=== PATIENT | female | born 1950 | race African-American/Black ===

== ENCOUNTER 2016-09-12 20:34 | Emergency (ER) | payer MEDICARE, OTHER ==
[~2016-09-12] VITALS: Ht 154.9 cm; Wt 76.2 kg
[~2016-09-12 20:34] MED LIST: ASPI81TA9 PO; ATOR40TA59 PO; HYDR25TA9 PO; METO100T2 PO; NAPR220C4 PO; RAMI10CA PO; VENL75TA PO
[2016-09-12 21:08] VITALS: BP 137/72
[2016-09-12 21:46] LABS: BILIRUBIN,URINE NEGATIVE (NEG); GLUCOSE,URINE NEGATIVE (NEG); NITRITE,URINE NEGATIVE (NEG); PH,URINE 5.5; PROTEIN,URINE NEGATIVE (NEG-TRACE)
[2016-09-12 22:00] LABS: BACTERIA,URINE 0 /HPF (0-FEW); RBC,URINE 20-40 /HPF (0-2); WBC,URINE TNTC /HPF (0-4)
[2016-09-12 22:01] LABS: SQUAMOUS EPITHELIAL CELL,UR MOD /LPF; TRICHOMONAS,URINE PRESENT
[2016-09-12] MEDS ORDERED: CEPH-264 PO (22:21)
[2016-09-12] MEDS ORDERED: PHEN100T82 PO (22:21)
[2016-09-12] MEDS ORDERED: CEPHALEXIN 250 MG CAPSULE PO ONE (22:30)
--- NOTE | 2016-09-12 22:47 | ED.ADGEN ---
Past Medical History Past Medical History: Diverticulosis, High Cholesterol, Hypertension Additional Past Medical Histor: POLYCYSTIC FIBROSIS, SHINGLES Past Surgical History: Cancer Surgery, Other Additional Past Surgical Histo: RIGHT HEMICOLECTOMY, RIGHT & LEFT CATARACT SX Alcohol Use: None Drug Use: None Adult General Chief Complaint Chief Complaint: BLOOD IN URINE HPI HPI Patient is a 66 year old woman, history of hypertension, hypercholesterolemia, who presents to the emergency department with a 1 day, complaint of hematuria and urgency, frequency and mild sense of "irritation" with urination. Patient denies any history of similar complaints, denies any abdominal pain, any flank pain, any nausea or vomiting, any fevers or chills. She is concerned that she may have a urinary tract infection. Denies any discharge or drainage from the vagina, any injuries. Has not taken any medications prior to coming to the ED. [ ] Review of Systems Review of Systems Constitutional: Denies fever or chills. [] Eyes: Denies change in visual acuity. [] HENT: Denies nasal congestion or sore throat. [] Respiratory: Denies cough or shortness of breath. [] Cardiovascular: Denies chest pain or edema. [] GI: Denies abdominal pain, nausea, vomiting, bloody stools or diarrhea. [] : Dysuria, frequency, urgency and hematuria times one day. Musculoskeletal: Denies back pain or joint pain. [] Integument: Denies rash. [] Neurologic: Denies headache, focal weakness or sensory changes. [] Endocrine: Denies polyuria or polydipsia. [] Lymphatic: Denies swollen glands. [] Psychiatric: Denies depression or anxiety. [] Current Medications Current Medications Current Medications Medications (Trade) Dose Ordered Sig/Jana Start Time Stop Time Status Last Admin Dose Admin Cephalexin HCl (Keflex) 250 mg 1X ONCE 09/12/16 22:30 09/12/16 22:31 DC 09/12/16 22:33 250 MG Allergies Allergies Allergies Coded Allergies Type Severity Reaction Last Updated Verified codeine Allergy Intermediate 09/12/16 Yes tramadol Allergy Intermediate 09/12/16 Yes Physical Exam Physical Exam Constitutional: Well developed, well nourished, no acute distress, non-toxic appearance. [] HENT: Normocephalic, atraumatic, bilateral external ears normal, oropharynx moist, no oral exudates, nose normal. [] Eyes: PERRLA, EOMI, conjunctiva normal, no discharge. [] Neck: Normal range of motion, no tenderness, supple, no stridor. [] Cardiovascular:Heart rate regular rhythm, no murmur , S1, S2, rubs or gallops. [ ] Lungs & Thorax: Bilateral breath sounds clear to auscultation, no wheezing, rhonchi, rales. No chest wall tenderness or crepitus. [] Abdomen: Bowel sounds normal, soft, no tenderness, no rebound, rigidity, no guarding no masses, no pulsatile masses. [] Skin: Warm, dry, no erythema, no rash. [] Back: No tenderness, no CVA tenderness. [] Extremities: No tenderness, no cyanosis, no clubbing, ROM intact, no edema. [] Neurologic: Alert and oriented X 3, normal motor function, normal sensory function, no focal deficits noted. [] Psychologic: Affect normal, judgement normal, mood normal. [] Current Patient Data Vital Signs Vital Signs Date Time Temp Pulse Resp B/P Pulse Ox O2 Delivery O2 Flow Rate FiO2 09/12/16 21:08 99.9 88 16 99 Room Air 99.9 Lab Values Laboratory Tests Test 09/12/16 21:00 Urine Collection Type Unknown Urine Color Yellow Urine Clarity Clear Urine pH 5.5 Urine Specific [place] 1.020 Urine Protein Negativemg/dL (NEG-TRACE) Urine Glucose (UA) Negativemg/dL (NEG) Urine Ketones (Stick) Negativemg/dL (NEG) Urine Blood Large (NEG) Urine Nitrite Negative (NEG) Urine Bilirubin Negative (NEG) Urine Urobilinogen Dipstick 1.0mg/dL (0.2 mg/dL) Urine Leukocyte Esterase Large (NEG) Urine RBC 20-40/HPF (0-2) Urine WBC Tntc/HPF (0-4) Urine Squamous Epithelial Cells Mod/LPF Urine Bacteria 0/HPF (0-FEW) Urine Trichomonas Present EKG EKG Not indicated. [] Radiology/Procedures Radiology/Procedures [] Impressions: Not indicated. Course & Med Decision Making Course & Med Decision Making Pertinent Labs and Imaging studies reviewed. (See chart for details) Patient's examination and history are consistent with a copy acute cystitis with hematuria. Urinalysis is positive for too numerous to count WBCs and blood , no bacteria are noted. I did discuss these findings with patient, she is agreeable to plan to treat urinary tract infection, with Pyridium for discomfort , to follow-up with her primary care provider for test of cure in 5-7 days, and to return to the ED if any new or concerning symptoms develop as discussed at bedside and in the paperwork. Patient given first dose of Keflex in the ED without issue, discharged home in stable condition with plan as above Dragon Disclaimer Dragon Disclaimer This electronic medical record was generated, in whole or in part, using a voice recognition dictation system. Departure Impression: Primary Impression: Urinary tract infection Disposition: HOME, SELF-CARE Condition: IMPROVED Scripts Phenazopyridine Hcl (Pyridium)100 Mg [id number] Mg PO TID PRN PAIN #9 TAB Prov:MARITZA FIERRO DO 09/12/16 Cephalexin (Keflex)500 Mg Capsule1 Cap PO BID #10 CAP Prov:MARITZA FIERRO DO 09/12/16 Problem Qualifiers Primary Impression: Urinary tract infection Urinary tract infection type: acute cystitis Hematuria presence: with hematuria Qualified Code: N30.01 - Acute cystitis with hematuria MARITZA FIERRO DO Sep 12, 2016 22:47
== END 2016-09-12 22:33 | disposition home or self-care (01) ==
LOC: ER 20:34
DX: N30.01 Acute cystitis with hematuria (principal); I10 Essential (primary) hypertension; E78.00 Pure hypercholesterolemia, unspecified; E28.2 Polycystic ovarian syndrome; Z88.5 Allergy status to narcotic agent
CPT/HCPCS: 81001; 99283

== ENCOUNTER 2017-01-11 15:26 | Emergency (ER) | payer MEDICARE, OTHER ==
[~2017-01-11] VITALS: Ht 154.9 cm; Wt 78.5 kg
[~2017-01-11 15:26] MED LIST changes: +ASPI-612 PO; -ASPI81TA9 PO; +CEPH-264 PO; +Metoprolol Succinate PO; +PHEN100T82 PO
[2017-01-11 16:35] LABS: BASO % 1 % (0-3); EOS % 1 % (0-3); HEMATOCRIT 48.7 % (36.0-47.0); HEMOGLOBIN 16.3 g/dL (12.0-15.5); LYMPH # 1.6 x10^3/uL (1.0-4.8); LYMPH % 29 % (24-48); MEAN CORPUSCULAR HEMOGLOBIN 29 pg (25-35); MEAN CORPUSCULAR HGB CONC 34 g/dL (31-37); MEAN CORPUSCULAR VOLUME 87 fL (79-100); MONO % 11 % (0-9); NEUT % 59 % (31-73); PLATELET COUNT 176 x10^3/uL (140-400); RED BLOOD COUNT 5.64 x10^6/uL (3.50-5.40); RED CELL DISTRIBUTION WIDTH 13.5 % (11.5-14.5); WHITE BLOOD COUNT 5.5 x10^3/uL (4.0-11.0)
[2017-01-11 16:45] LABS: BILIRUBIN,URINE NEGATIVE (NEG); GLUCOSE,URINE NEGATIVE (NEG); NITRITE,URINE NEGATIVE (NEG); PH,URINE 7.5; PROTEIN,URINE NEGATIVE (NEG-TRACE)
--- NOTE | 2017-01-11 16:47 | EKG ---
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
[2017-01-11 16:57] LABS: BACTERIA,URINE FEW /HPF (0-FEW); RBC,URINE RARE /HPF (0-2); SQUAMOUS EPITHELIAL CELL,UR MOD /LPF; TRICHOMONAS,URINE PRESENT
--- NOTE | 2017-01-11 17:16 | PHYS DOC ---
Past Medical History Past Medical History: Cancer, Diverticulosis, High Cholesterol, Hypertension, Other Additional Past Medical Histor: POLYCYSTIC FIBROSIS, SHINGLES,COLON CA Past Surgical History: Cancer Surgery, Other Additional Past Surgical Histo: RIGHT HEMICOLECTOMY, RIGHT & LEFT CATARACT SX Alcohol Use: None Drug Use: None Adult General Chief Complaint Chief Complaint: DIZZY/LIGHT HEADED HPI HPI Patient is a 66 year old female who was driven to the ED by family members with the complaint of dizziness. Patient describes this as "my head is swimming ". Patient was actually admitted in late November for a couple of days for this same complaint. She was treated for a UTI on that admission. She states her symptoms never went away and has bothered her ever since then but his worse today. She lives alone. She denies fall. She does not have a headache. She states when she was discharged from the hospital they told her she needed to follow-up with ENT but she has not been able to do that yet. Patient is on no new medications. Before she was admitted in November she had been seen in the office and was told she was on "too many medications" she was told to stop taking hydrochlorothiazide and potassium. She has continued all of her other medications as prescribed. Patient denies pain anywhere, denies shortness of air, denies vomiting or diarrhea, denies UTI symptoms. PCP Dr.Moussa Wheatley metoprolol 100 mg daily, ramipril, atorvastatin, Vanlafexine Review of Systems Review of Systems Constitutional: Denies fever or chills [] Eyes: Denies change in visual acuity, redness, or eye pain [] HENT: Denies nasal congestion or sore throat [] Respiratory: Denies cough or shortness of breath [] Cardiovascular: Denies chest pain GI: Denies abdominal pain, nausea, vomiting, bloody stools or diarrhea [] : Denies dysuria or hematuria [] Musculoskeletal: Denies back pain or joint pain [] Integument: Denies rash or skin lesions [] Neurologic: Denies headache, focal weakness or sensory changes [] Endocrine: Denies polyuria or polydipsia [] Allergies Allergies Allergies Coded Allergies Type Severity Reaction Last Updated Verified codeine Allergy Intermediate 09/12/16 Yes tramadol Allergy Intermediate 09/12/16 Yes Physical Exam Physical Exam Constitutional: Well developed, well nourished, no acute distress, non-toxic appearance. [] HENT: Normocephalic, atraumatic, bilateral external ears normal, oropharynx moist, no oral exudates, nose normal. [] Eyes: PERRLA, EOMI, conjunctiva normal, no discharge. [] Neck: Normal range of motion, no tenderness, supple, no stridor. [] Cardiovascular:Heart rate regular rhythm, no murmur [] Lungs & Thorax: Bilateral breath sounds clear to auscultation [] Abdomen: Bowel sounds normal, soft, no tenderness, no masses, no pulsatile masses. [] Skin: Warm, dry, no erythema, no rash. [] Back: No tenderness, no CVA tenderness. [] Extremities: No tenderness, no cyanosis, no clubbing, ROM intact, no edema. [] Neurologic: Alert and oriented X 3, normal motor function, normal sensory function, no focal deficits noted. [] Psychologic: Affect normal, judgement normal, mood normal. [] Current Patient Data Vital Signs Vital Signs Date Time Temp Pulse Resp B/P (MAP) Pulse Ox O2 Delivery O2 Flow Rate FiO2 01/11/17 17:46 63 18 159/73 (101) 94 01/11/17 17:16 Room Air 01/11/17 15:58 98.5 98.5 Lab Values Laboratory Tests Test 01/11/17 15:35 01/11/17 16:00 01/11/17 17:00 Urine Collection Type Unknown Urine Color Yellow Urine Clarity Clear Urine pH 7.5 Urine Specific [place] 1.015 Urine Protein Negative mg/dL (NEG-TRACE) Urine Glucose (UA) Negative mg/dL (NEG) Urine Ketones (Stick) Negative mg/dL (NEG) Urine Blood Negative (NEG) Urine Nitrite Negative (NEG) Urine Bilirubin Negative (NEG) Urine Urobilinogen Dipstick 1.0 mg/dL (0.2 mg/dL) Urine Leukocyte Esterase Small (NEG) Urine RBC Rare /HPF (0-2) Urine WBC 1-4 /HPF (0-4) Urine Squamous Epithelial Cells Mod /LPF Urine Bacteria Few /HPF (0-FEW) Urine Mucus Slight /LPF Urine Trichomonas Present White Blood Count 5.5 x10^3/uL (4.0-11.0) Red Blood Count 5.64 x10^6/uL (3.50-5.40) H Hemoglobin 16.3 g/dL (12.0-15.5) H Hematocrit 48.7 % (36.0-47.0) H Mean Corpuscular Volume 87 fL (79-100) Mean Corpuscular Hemoglobin 29 pg (25-35) Mean Corpuscular Hemoglobin Concent 34 g/dL (31-37) Red Cell Distribution Width 13.5 % (11.5-14.5) Platelet Count 176 x10^3/uL (140-400) Neutrophils (%) (Auto) 59 % (31-73) Lymphocytes (%) (Auto) 29 % (24-48) Monocytes (%) (Auto) 11 % (0-9) H Eosinophils (%) (Auto) 1 % (0-3) Basophils (%) (Auto) 1 % (0-3) Neutrophils # (Auto) 3.3 x10^3uL (1.8-7.7) Lymphocytes # (Auto) 1.6 x10^3/uL (1.0-4.8) Monocytes # (Auto) 0.6 x10^3/uL (0.0-1.1) Eosinophils # (Auto) 0.0 x10^3/uL (0.0-0.7) Basophils # (Auto) 0.0 x10^3/uL (0.0-0.2) Sodium Level 144 mmol/L (136-145) Potassium Level 3.6 mmol/L (3.5-5.1) Chloride Level 106 mmol/L (98-107) Carbon Dioxide Level 35 mmol/L (21-32) H Anion Gap 3 (6-14) L Blood Urea Nitrogen 14 mg/dL (7-20) Creatinine 1.5 mg/dL (0.6-1.0) H Estimated GFR (Cockcroft-Gault) 41.9 BUN/Creatinine Ratio 9 (6-20) Glucose Level 109 mg/dL (70-99) H Calcium Level 9.5 mg/dL (8.5-10.1) Total Bilirubin 0.4 mg/dL (0.2-1.0) Aspartate Amino Transferase (AST) 26 U/L (15-37) Alanine Aminotransferase (ALT) 38 U/L (14-59) Alkaline Phosphatase 156 U/L (46-116) H Total Protein 7.7 g/dL (6.4-8.2) Albumin 3.4 g/dL (3.4-5.0) Albumin/Globulin Ratio 0.8 (1.0-1.7) L Laboratory Tests 01/11/17 16:00 Laboratory Tests 01/11/17 17:00 EKG EKG 12-lead EKG read by me. Sinus rhythm. Heart rate 62. There are no acute ST or T wave changes indicative of ischemia or infarction. No STEMI. 1054 [] Radiology/Procedures Radiology/Procedures [] Course & Med Decision Making Course & Med Decision Making Pertinent Labs and Imaging studies reviewed. (See chart for details) Labs obtained, no findings would explain dizziness. Her creatinine is a bit elevated but similar to what it has been in the past. I discussed with the patient admission versus outpatient follow-up. She is nontoxic, not acute, she does not meet any admission criteria. I'm not sure that any further evaluation in the hospital would benefit her. She was advised to follow up with ENT and I agree that that is probably the next best specialist for her to see. We discussed that and she is comfortable making ENT follow-up arrangements as an outpatient. We will try a decongestant for a few days as well. See instructions for plan. [] Dragon Disclaimer Dragon Disclaimer This electronic medical record was generated, in whole or in part, using a voice recognition dictation system. Departure Departure Impression: Primary Impression: Dizziness of unknown cause Disposition: HOME, SELF-CARE Condition: STABLE Referrals: LUBA YOUSSEF MD (PCP) Additional Instructions: As we discussed, dizziness can be caused by different problems. We did not find a serious cause of your dizziness today in the emergency department. I suggest follow up with ear, nose, throat specialist (ENT) as the next step in evaluating your dizziness. Call your doctor Friday to work on getting appointment. I recommend that you try taking a decongestant for a few days to see if this helps. This can be purchased [id number] in the cold dissection, a decongestant such as phenyl (. Take as directed. It will cause your blood pressure to be slightly elevated while you're taking it but that will not be dangerous and it is fine to do that. REEMA KINGSLEY MD Jan 11, 2017 17:16
[2017-01-11 17:22] LABS: CALCIUM 9.5 mg/dL (8.5-10.1); CREATININE 1.5 mg/dL (0.6-1.0); GFR 41.9; POTASSIUM 3.6 mmol/L (3.5-5.1)
[2017-01-11 17:27] LABS: ALBUMIN 3.4 g/dL (3.4-5.0); ALBUMIN/GLOBULIN RATIO 0.8 (1.0-1.7); TOTAL BILIRUBIN 0.4 mg/dL (0.2-1.0); TOTAL PROTEIN 7.7 g/dL (6.4-8.2)
[2017-01-11 17:46] VITALS: BP 159/73
== END 2017-01-11 18:27 | disposition home or self-care (01) ==
LOC: ER 15:26
DX: R42 Dizziness and giddiness (principal); R74.8 Abnormal levels of other serum enzymes; E78.00 Pure hypercholesterolemia, unspecified; I10 Essential (primary) hypertension; Z88.5 Allergy status to narcotic agent; Z98.41 Cataract extraction status, right eye
CPT/HCPCS: 36415; 80053; 81001; 85027; 87086; 93005; 99285-25

== ENCOUNTER 2019-08-21 18:04 | Emergency (ER) | payer MEDICARE, OTHER ==
[~2019-08-21] VITALS: Ht 152.4 cm; Wt 83.3 kg
[~2019-08-21 18:04] MED LIST changes: +HYDR-2145 PO; -HYDR25TA9 PO; -METO100T2 PO; +METO100T7 PO; -RAMI10CA PO; +RAMI10CA53 PO
[2019-08-21 19:24] LABS: BILIRUBIN,URINE NEGATIVE (NEG); CLARITY,URINE CLEAR; COLOR,URINE YELLOW; NITRITE,URINE NEGATIVE (NEG); PH,URINE 5.5; PROTEIN,URINE NEGATIVE (NEG-TRACE)
[2019-08-21 19:24] LABS: BASO # 0.1 x10^3/uL (0.0-0.2); BASO % 1 % (0-3); EOS % 1 % (0-3); HEMATOCRIT 44.7 % (36.0-47.0); HEMOGLOBIN 14.7 g/dL (12.0-15.5); LYMPH # 1.9 x10^3/uL (1.0-4.8); LYMPH % 30 % (24-48); MEAN CORPUSCULAR HEMOGLOBIN 29 pg (25-35); MEAN CORPUSCULAR HGB CONC 33 g/dL (31-37); MEAN CORPUSCULAR VOLUME 87 fL (79-100); MONO # 0.5 x10^3/uL (0.0-1.1); MONO % 8 % (0-9); NEUT # 3.7 x10^3/uL (1.8-7.7); NEUT % 60 % (31-73); PLATELET COUNT 199 x10^3/uL (140-400); RED BLOOD COUNT 5.15 x10^6/uL (3.50-5.40); RED CELL DISTRIBUTION WIDTH 13.3 % (11.5-14.5); WHITE BLOOD COUNT 6.2 x10^3/uL (4.0-11.0)
--- NOTE | 2019-08-21 19:24 | PHYS DOC ---
Past Medical History Past Medical History: Cancer, Diverticulosis, High Cholesterol, Hypertension, Other Additional Past Medical Histor: POLYCYSTIC FIBROSIS, SHINGLES,COLON CA Past Surgical History: Cancer Surgery, Other Additional Past Surgical Histo: RIGHT HEMICOLECTOMY, RIGHT & LEFT CATARACT SX Alcohol Use: None Drug Use: None Adult General Chief Complaint Chief Complaint: DIZZY/LIGHT HEADED HPI HPI Patient is a 69 year old female who presents with patient states for the last week she could just be sitting watching TV or laying in bed and suddenly get dizzy. She states that her blood pressure goes up and she becomes dizzy. She states she can either be just sitting there doing nothing or she could even rolling around in bed switching positions and she would fill it. She denies abdominal pain, nausea, vomiting, visual changes, headache, numbness or tingling, weakness, chest pain, shortness of air, fever, recent illness, palpitations. She denies any dizziness at this time. Review of Systems Review of Systems Neurologic: Intermittent dizziness. Denies headache, focal weakness or sensory changes [] All other systems were reviewed and found to be within normal limits, except as documented in this note. Current Medications Current Medications Current Medications Medications (Trade) Dose Ordered Sig/Jnaa Start Time Stop Time Status Last Admin Dose Admin Sodium Chloride 1,000 ml @ 1,000 mls/hr 1X ONCE 08/21/19 20:15 08/21/19 21:14 08/21/19 20:13 1,000 MLS/HR Allergies Allergies Allergies Coded Allergies Type Severity Reaction Last Updated Verified codeine Allergy Intermediate 09/12/16 Yes tramadol Allergy Intermediate 09/12/16 Yes Physical Exam Physical Exam Constitutional: Well developed, well nourished, no acute distress, non-toxic appearance. [] HENT: Normocephalic, atraumatic, bilateral external ears normal, oropharynx moist, no oral exudates, nose normal. [] Eyes: PERRLA, EOMI, conjunctiva normal, no discharge. [] Neck: Normal range of motion, no tenderness, supple, no stridor. [] Cardiovascular:Heart rate regular rhythm, no murmur [] Lungs & Thorax: Bilateral breath sounds clear to auscultation [] Abdomen: Bowel sounds normal, soft, no tenderness, no masses, no pulsatile masses. [] Skin: Warm, dry, no erythema, no rash. [] Back: No tenderness, no CVA tenderness. [] Extremities: No tenderness, no cyanosis, no clubbing, ROM intact, no edema. [] Neurologic: Alert and oriented X 3, normal motor function, normal sensory function, no focal deficits noted. [] Psychologic: Affect normal, judgement normal, mood normal. Normal Physical Exam[] Current Patient Data Vital Signs Vital Signs Date Time Temp Pulse Resp B/P (MAP) Pulse Ox O2 Delivery O2 Flow Rate FiO2 08/21/19 19:05 98.7 71 12 135/61 (85) 98 Room Air 98.7 Lab Values Laboratory Tests Test 08/21/19 18:43 08/21/19 19:18 Urine Collection Type Unknown Urine Color Yellow Urine Clarity Clear Urine pH 5.5 Urine Specific [place] 1.015 Urine Protein Negative mg/dL (NEG-TRACE) Urine Glucose (UA) Negative mg/dL (NEG) Urine Ketones (Stick) Negative mg/dL (NEG) Urine Blood Negative (NEG) Urine Nitrite Negative (NEG) Urine Bilirubin Negative (NEG) Urine Urobilinogen Dipstick 1.0 mg/dL (0.2 mg/dL) Urine Leukocyte Esterase Small (NEG) Urine RBC 0 /HPF (0-2) Urine WBC 5-10 /HPF (0-4) Urine Squamous Epithelial Cells Many /LPF Urine Bacteria Moderate /HPF (0-FEW) Urine Mucus Slight /LPF White Blood Count 6.2 x10^3/uL (4.0-11.0) Red Blood Count 5.15 x10^6/uL (3.50-5.40) Hemoglobin 14.7 g/dL (12.0-15.5) Hematocrit 44.7 % (36.0-47.0) Mean Corpuscular Volume 87 fL (79-100) Mean Corpuscular Hemoglobin 29 pg (25-35) Mean Corpuscular Hemoglobin Concent 33 g/dL (31-37) Red Cell Distribution Width 13.3 % (11.5-14.5) Platelet Count 199 x10^3/uL (140-400) Neutrophils (%) (Auto) 60 % (31-73) Lymphocytes (%) (Auto) 30 % (24-48) Monocytes (%) (Auto) 8 % (0-9) Eosinophils (%) (Auto) 1 % (0-3) Basophils (%) (Auto) 1 % (0-3) Neutrophils # (Auto) 3.7 x10^3/uL (1.8-7.7) Lymphocytes # (Auto) 1.9 x10^3/uL (1.0-4.8) Monocytes # (Auto) 0.5 x10^3/uL (0.0-1.1) Eosinophils # (Auto) 0.0 x10^3/uL (0.0-0.7) Basophils # (Auto) 0.1 x10^3/uL (0.0-0.2) Prothrombin Time 13.7 SEC (11.7-14.0) Prothrombin Time INR 1.1 (0.8-1.1) Sodium Level 144 mmol/L (136-145) Potassium Level 3.7 mmol/L (3.5-5.1) Chloride Level 106 mmol/L (98-107) Carbon Dioxide Level 29 mmol/L (21-32) Anion Gap 9 (6-14) Blood Urea Nitrogen 24 mg/dL (7-20) H Creatinine 1.5 mg/dL (0.6-1.0) H Estimated GFR (Cockcroft-Gault) 41.5 BUN/Creatinine Ratio 16 (6-20) Glucose Level 111 mg/dL (70-99) H Calcium Level 8.9 mg/dL (8.5-10.1) Total Bilirubin 0.5 mg/dL (0.2-1.0) Aspartate Amino Transferase (AST) 23 U/L (15-37) Alanine Aminotransferase (ALT) 24 U/L (14-59) Alkaline Phosphatase 136 U/L (46-116) H Total Protein 7.3 g/dL (6.4-8.2) Albumin 3.4 g/dL (3.4-5.0) Albumin/Globulin Ratio 0.9 (1.0-1.7) L Laboratory Tests 08/21/19 19:18 Laboratory Tests 08/21/19 19:18 EKG EKG Sinus Rhythm and no STEMI[] Interpretation Time: [address] Barnes Radiology/Procedures Radiology/Procedures [] Impressions: [facility] [address] [place], [place] [id number] IMAGING REPORT Signed PATIENT: BOB SALMON: [id number] : 1950 LOCATION: ER AGE: 69 SEX: F EXAM STATUS: REG ER ORD. PHYSICIAN: VIPIN SOLIS APRN REASON: dizziness PROCEDURE: PORTABLE CHEST 1V Exam: Chest one view INDICATION: Dizziness TECHNIQUE: Frontal view of the chest Comparisons: 12/21/2016 FINDINGS: The cardiomediastinal silhouette and pulmonary vessels are within normal limits. The lung and pleural spaces are clear. IMPRESSION: No acute cardiopulmonary process. Electronically signed by: Min Hernandez MD (08/21/2019 7:57 PM) [facility] DICTATED and SIGNED BY: MIN HERNANDEZ MD DATE: 08/21/191956 [facility] [address] [place] [address] IMAGING REPORT Signed PATIENT: BOB SALMON: [id number] : 1950 LOCATION: ER AGE: 69 SEX: F EXAM STATUS: REG ER ORD. PHYSICIAN: VIPIN SOLIS APRN REASON: dizziness and elevated blood pressure; no trauma PROCEDURE: CT HEAD WO CONTRAST CT HEAD WO CONTRAST History: Dizziness, elevated blood pressure Comparison: December 21, 2016 Technique: Noncontrast CT imaging was performed of the head. Exposure: One or more of the following individualized dose reduction techniques were utilized for this examination: 1. Automated exposure control 2. Adjustment of the mA and/or kV according to patient size 3. Use of iterative reconstruction technique. Findings: There again has been bifrontal and right parietal temporal craniotomy. There are again clips in the right frontal region. There is a similar degree of encephalomalacia/resection cavity with cortical involvement of the right frontal lobe. There is again prominence of bifrontal subarachnoid spaces, evidence of involutional change. No acute hyperdense intracranial hemorrhage is identified. Rich-white differentiation of the major vascular territories is maintained. There is atherosclerotic calcification of the carotid siphons bilaterally. Visualized paranasal sinuses and mastoid air cells are aerated. Impression: 1. No acute intracranial abnormality is identified. There is similar degree of encephalomalacia/resection cavity of the right frontal lobe with cortical involvement. Electronically signed by: Odalis Beckham MD (08/21/2019 7:45 PM) [facility] DICTATED and SIGNED BY: ODALIS BECKHAM MD DATE: 08/21/191944 Course & Med Decision Making Course & Med Decision Making No nystagmus. PERRLA. Alert and oriented. Ambulatory with a steady gait. Patient states she is eating and drinking appropriately. Lungs are clear to auscultation all lobes. Vital signs are within normal limits. She denies any new changes in her medications. No extremity edema. Speaks in full clear sentences. Skin pink warm and dry. Abdomen is soft and nontender. EKG shows sinus rhythm and no STEMI. NIH is negative. Kidney enzymes compared to 5 years ago (last we have on file) have jumped almost [address] head and chest xray show no acute findings. Orthostatics are normal. Patient is given fluids. She does have a slight UTI. Her symptoms are vertigo type symptoms. Patient is able to walk with a steady gait. Dragon Disclaimer Dragon Disclaimer This electronic medical record was generated, in whole or in part, using a voice recognition dictation system. Departure Departure Impression: Primary Impression: Urinary tract infection Additional Impression: Vertigo Disposition: 01 HOME, SELF-CARE Condition: STABLE Referrals: NON,STAFF (PCP) Patient Instructions: Urinary Tract Infection, Vertigo Additional Instructions: Treatment plenty of fluids. Take antibiotic as prescribed. Follow up with her primary care doctor as soon as possible. Go from laying to sitting slowly and from sitting to standing slowly. Scripts Cephalexin (KEFLEX) 500 Mg Capsule 1 CAP PO BID for 7 Days, #14 CAP 0 Refills Prov: VIPIN SOLIS APRN 08/21/19 Meclizine Hcl (MECLIZINE HCL) 25 Mg Tablet 1 TAB PO TID, #21 TAB Prov: VIPIN SOILS APRN 08/21/19 Problem Qualifiers Primary Impression: Urinary tract infection Urinary tract infection type: acute cystitis Hematuria presence: without hematuria Qualified Codes: N30.00 - Acute cystitis without hematuria VIPIN SOLIS APRN Aug 21, 2019 19:24
[2019-08-21 19:30] LABS: SQUAMOUS EPITHELIAL CELL,UR MANY /LPF
[2019-08-21 19:30] LABS: CALCIUM 8.9 mg/dL (8.5-10.1); CREATININE 1.5 mg/dL (0.6-1.0); GFR 41.5; POTASSIUM 3.7 mmol/L (3.5-5.1)
[2019-08-21 19:31] LABS: BACTERIA,URINE MODERATE /HPF (0-FEW); RBC,URINE 0 /HPF (0-2)
[2019-08-21 19:33] LABS: PROTHROMBIN TIME PATIENT 13.7 SEC (11.7-14.0)
[2019-08-21 19:38] LABS: ALBUMIN 3.4 g/dL (3.4-5.0); ALBUMIN/GLOBULIN RATIO 0.9 (1.0-1.7); TOTAL BILIRUBIN 0.5 mg/dL (0.2-1.0); TOTAL PROTEIN 7.3 g/dL (6.4-8.2)
--- NOTE | 2019-08-21 19:48 | RAD ---
CT HEAD WO CONTRAST History: Dizziness, elevated blood pressure Comparison: December 21, 2016 Technique: Noncontrast CT imaging was performed of the head. Exposure: One or more of the following individualized dose reduction techniques were utilized for this examination: 1. Automated exposure control 2. Adjustment of the mA and/or kV according to patient size 3. Use of iterative reconstruction technique. Findings: There again has been bifrontal and right parietal temporal craniotomy. There are again clips in the right frontal region. There is a similar degree of encephalomalacia/resection cavity with cortical involvement of the right frontal lobe. There is again prominence of bifrontal subarachnoid spaces, evidence of involutional change. No acute hyperdense intracranial hemorrhage is identified. Rich-white differentiation of the major vascular territories is maintained. There is atherosclerotic calcification of the carotid siphons bilaterally. Visualized paranasal sinuses and mastoid air cells are aerated. Impression: 1. No acute intracranial abnormality is identified. There is similar degree of encephalomalacia/resection cavity of the right frontal lobe with cortical involvement. Electronically signed by: Adria Davis MD (08/21/2019 7:45 PM) [facility]
--- NOTE | 2019-08-21 20:00 | RAD ---
Exam: Chest one view INDICATION: Dizziness TECHNIQUE: Frontal view of the chest Comparisons: 12/21/2016 FINDINGS: The cardiomediastinal silhouette and pulmonary vessels are within normal limits. The lung and pleural spaces are clear. IMPRESSION: No acute cardiopulmonary process. Electronically signed by: Min Rushing MD (08/21/2019 7:57 PM) [id number]
[2019-08-21 20:09] VITALS: BP 148/67
[2019-08-21] MEDS ORDERED: IV NORMAL SALINE 1000ML BAG 1,000 ML IV ONE (20:15)
[2019-08-21] MEDS ORDERED: CEPH-264 PO (20:18)
[2019-08-21] MEDS ORDERED: MECL-75 PO (20:18)
--- NOTE | 2019-08-22 16:53 | EKG ---
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
== END 2019-08-21 20:55 | disposition home or self-care (01) ==
LOC: ER 18:04
DX: N30.00 Acute cystitis without hematuria (principal); R42 Dizziness and giddiness; I10 Essential (primary) hypertension; E78.00 Pure hypercholesterolemia, unspecified; Z88.5 Allergy status to narcotic agent; Z88.6 Allergy status to analgesic agent
CPT/HCPCS: 36415; 70450; 71045; 80053; 81001; 83880; 85025; 85610; 87086; 93005; 96360; 99285; J7030